=== PATIENT | female | born 1960 | race Caucasian/White ===

== ENCOUNTER → 2017-05-06 | Outpatient (CLI) | payer OTHER ==
--- NOTE | 2017-05-06 11:28 | MM ---
Reason for exam: additional evaluation requested from abnormal screening. Last mammogram was performed 1 month ago. History: Patient is postmenopausal. Physical Findings: Nurse did not find any significant physical abnormalities on exam. MG Work Up Mamm w CAD LT CC and MLO view(s) were taken of the left breast. Prior study comparison: April 20, 2017, bilateral MG screening mammo w CAD. June 12, 2011, bilateral digital screening mammo w/CAD. Developing asymmetry does not persist as distinct lesion on additional views. These results were verbally communicated with the patient and result sheet given to the patient on 05/06/17. ASSESSMENT: Benign, BI-RAD 2 RECOMMENDATION: Return to routine screening mammogram schedule for both breasts.
== END | disposition home or self-care (01) ==
LOC: RADMAMWWP 10:15
PROVIDERS: ATTEND Family Medicine
DX: R92.8 Other abnormal and inconclusive findings on diagnostic imaging of breast (principal)
CPT/HCPCS: 77065

== ENCOUNTER 2017-11-27 10:59 | Emergency (ER) | payer OTHER ==
[2017-11-27 11:08] VITALS: BP 121/81; PULSE 77; RESP 16; TEMP 97.7
[2017-11-27] MEDS ORDERED: LIDOCAINE 1% INJ 10MG/ML (20 ML MDV) SQ STA (13:08)
--- NOTE | 2017-11-27 13:12 | ED ---
General Adult HPI - General Chief complaint: Skin/Abscess/Foreign Body Stated complaint: Wound on chest Time Seen by Provider: 11/27/17 13:05 Source: patient, RN notes reviewed Mode of arrival: ambulatory Limitations: no limitations - History of Present Illness Initial comments: Patient 57-year-old female presents emergency room today with a chief complaint of abscess to the left breast. Patient does admit that there was area to the left breast that she was told a year ago that she did not need to worry about. She states her last few days it has become more swollen and red and tender. Denies any drainage. She denies any other complaints. Patient denies any recent fever, chills, shortness of breath, chest pain, back pain, abdominal pain , tingling, dysuria or hematuria, constipation or diarrhea, headaches or visual changes, or any other complaints. - Related Data Previous Rx's Medication Instructions Recorded Sulfamethox-Tmp 800-160Mg [Bactrim 1 tab PO Q12HR #20 tab 11/27/17 DS 800-160 mg] Allergies Allergy/AdvReac Type Severity Reaction Status Date / Time No Known Allergies Allergy Verified 11/27/17 11:04 Review of Systems ROS Statement: Those systems with pertinent positive or pertinent negative responses have been documented in the HPI. ROS Other: All systems not noted in ROS Statement are negative. Past Medical History Past Medical History: COPD, GERD/Reflux, Hypertension History of Any Multi-Drug Resistant Organisms: None Reported Past Surgical History: Tubal Ligation Additional Past Surgical History / Comment(s): facial Past Psychological History: No Psychological Hx Reported Smoking Status: Current every day smoker Past Alcohol Use History: Occasional Past Drug Use History: None Reported General Exam - General Exam Comments Initial Comments: General: The patient is awake and alert, in no distress, and does not appear acutely ill. Eye: Pupils are equal, round and reactive to light, extra-ocular movements are intact. No nystagmus. There is normal conjunctiva bilaterally. No signs of icterus. Ears, nose, mouth and throat: There are moist mucous membranes and no oral lesions. Neck: The neck is supple, there is no tenderness or JVD. Musculoskeletal: Normal ROM, no tenderness. Strength 5/5. Sensation intact. Pulses equal bilaterally 2+. Neurological: A&O x 3. CN II-XII intact, There are no obvious motor or sensory deficits. Coordination appears grossly intact. Speech is normal. Skin: Patient does have abscess to left breast measuring approximately 1 cm across. Local redness and erythema locally surrounding area. Psychiatric: Cooperative, appropriate mood & affect, normal judgment. Limitations: no limitations Course Vital Signs 11/27/17 11:04 Temperature 97.7 F Pulse Rate 77 Respiratory 16 Rate Blood Pressure 121/81 O2 Sat by Pulse 96 Oximetry Procedures - Procedures Initial comment: Procedure: Incision and drainage The skin overlying the abscess was prepped with Betadine, and anesthetized with 1% lidocaine without epinephrine. A #11 scalpel was then used to incise the abscess. Some purulent material was then extracted from the lesion. Gauze dressing placed on top, The patient tolerated the procedure well. Medical Decision Making - Medical Decision Making Patient did have abscess to the left side of the chest wall. Was drained here in the emergency room will be started on antibiotics and advised follow-up family physician. Disposition Clinical Impression: Abscess Disposition: HOME SELF-CARE Condition: Good Instructions: Abscess (ED) Additional Instructions: Please use warm compresses to the affected area and antibiotic as prescribed. Please follow family physician over the next 2-5 days return here to emergency room if any symptoms increase or worsen. Prescriptions: Sulfamethox-Tmp 800-160Mg [Bactrim DS 800-160 mg] 1 tab PO Q12HR #20 tab Is patient prescribed a controlled substance at d/c from ED?: No Referrals: Gio Gay MD [Primary Care Provider] - 1-2 days Time of Disposition: 13:32
== END 2017-11-27 13:56 | disposition home or self-care (01) ==
LOC: EC 10:59
DX: L02.213 Cutaneous abscess of chest wall (principal); F17.200 Nicotine dependence, unspecified, uncomplicated
CPT/HCPCS: 99282; 10060; J2001

== ENCOUNTER → 2019-01-11 | Outpatient (CLI) | payer OTHER ==
--- NOTE | 2019-01-13 09:46 | MM ---
Reason for exam: screening (asymptomatic). Last mammogram was performed 1 year and 8 months ago. History: Patient is postmenopausal. Physical Findings: A clinical breast exam by your physician is recommended on an annual basis and results should be correlated with mammographic findings. MG Screening Mammo w CAD Bilateral CC and MLO view(s) were taken. Prior study comparison: May 06, 2017, left breast MG work up mamm w CAD LT. April 20, 2017, bilateral MG screening mammo w CAD. The breast tissue is heterogeneously dense. This may lower the sensitivity of mammography. Subareolar nodularity left CC view posterior depth is more defined. ASSESSMENT: Incomplete: need additional imaging evaluation, BI-RAD 0 RECOMMENDATION: Special view mammogram of the left breast. (3D) If lesion persists on supplemental views, image directed ultrasound is recommended. [facility] will attempt to contact patient to return for supplemental views and ultrasound if indicated.
== END | disposition home or self-care (01) ==
LOC: RADMAMWWP 13:28
PROVIDERS: ATTEND Family Medicine
DX: Z12.31 Encounter for screening mammogram for malignant neoplasm of breast (principal)
CPT/HCPCS: 77067

== ENCOUNTER 2019-02-27 10:45 | Emergency (ER) | payer OTHER ==
[2019-02-27 11:06] VITALS: RESP 16; TEMP 98.5
[2019-02-27] MEDS ORDERED: IPRATROPIUM-ALBUTEROL 3 ML NEB INHALATION STA (11:21)
[2019-02-27] MEDS ORDERED: methylPREDNISolone SOD SUCCI 125 MG/2 ML VIAL IV STA (11:21)
[2019-02-27 12:01] LABS: Basophils # (A) 0.1 k/uL (0-0.2); Basophils % (A) 1 %; Eosinophils # (A) 0.1 k/uL (0-0.7); Eosinophils % (A) 1 %; HCT 41.6 % (34.0-46.0); HGB 13.2 gm/dL (11.4-16.0); Lymphocytes # (A) 1.6 k/uL (1.0-4.8); Lymphocytes % (A) 20 %; MCH 28.8 pg (25.0-35.0); MCHC 31.8 g/dL (31.0-37.0); MCV 90.6 fL (80.0-100.0); Mean Platelet Volume 6.6; Monocytes # (A) 0.4 k/uL (0-1.0); Monocytes % (A) 4 %; Neutrophils # (A) 5.8 k/uL (1.3-7.7); Neutrophils % (A) 72 %; Platelet Count 321 k/uL (150-450); RBC 4.59 m/uL (3.80-5.40); RDW 14.2 % (11.5-15.5); WBC 8.1 k/uL (3.8-10.6)
[2019-02-27 12:10] LABS: ALT 15 U/L (9-52); AST 18 U/L (14-36); African American GFR (CKD) >90 (>60 ml/min/1.73 sqM); Alkaline Phosphatase 69 U/L (38-126); Anion Gap 4 mmol/L; Blood Urea Nitrogen 7 mg/dL (7-17); Calcium 9.1 mg/dL (8.4-10.2); Carbon Dioxide 25 mmol/L (22-30); Chloride 111 mmol/L (98-107); Glucose 131 mg/dL (74-99); Potassium 3.9 mmol/L (3.5-5.1); Sodium 140 mmol/L (137-145); Total Bilirubin 0.3 mg/dL (0.2-1.3); Total Protein 5.6 g/dL (6.3-8.2)
--- NOTE | 2019-02-27 12:12 | ED ---
SOB HPI - General Chief Complaint: Shortness of Breath Stated Complaint: pneumonia Time Seen by Provider: 02/27/19 11:04 Source: EMS Mode of arrival: EMS Limitations: no limitations - History of Present Illness Initial Comments: The patient is a 59-year-old female with past history of COPD who presents to the emergency room with reported shortness of breath for the past 3 weeks. She works at the [employer] and believes she may come in contact with someone sick. Admits to a cough without sputum production. She did get a flu shot this year. Admits to shortness of breath and chest wall pain. She feels short of breath at rest and with exertion. She saw her primary care physician, Dr. Gay in office last week. He performed a chest x-ray and diagnosed the patient with pneumonia. He placed her on Keflex. States she's been taking the medications 4 times a day however she feels worse. She does have inhalers at her disposal to use but states she hasn't been using them because the do not help her. 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 She normally smokes a half pack a day. States that since she's been sick she's only smoked 3 cigarettes total. Denies any cardiac history. Ripping or tearing sensation to her back. Denies nausea, vomiting or diaphoresis. No nausea or vomiting. Denies a history of DVT or PE. No lower extremity swelling. Denies any calf pain. She has any abdominal pain or changes in her bowel or bladder habits. She was instructed that she did not feel better, to going to the emergency department. She denies any fevers or chills. There are no other alleviating, precipitating or modifying factors - Related Data Home Medications Medication Instructions Recorded Confirmed HYDROcodone/APAP 7.5-325MG [[place] 1 - 2 tab PO DAILY PRN 02/27/19 02/27/19 7.5-325] Ibuprofen 200 mg PO Q6H PRN 02/27/19 02/27/19 amLODIPine [Norvasc] 5 mg PO DAILY 02/27/19 02/27/19 Previous Rx's Medication Instructions Recorded Azithromycin [Zithromax Z-pack] 250 mg PO DIRECTED #1 pack 02/27/19 guaiFENesin SYRUP 100MG/5ML 10 mg PO Q4HR PRN #180 ml 02/27/19 [Robitussin] predniSONE 20 mg PO BID #10 tab 02/27/19 Allergies Allergy/AdvReac Type Severity Reaction Status Date / Time No Known Allergies Allergy Verified 02/27/19 11:26 Review of Systems ROS Statement: Those systems with pertinent positive or pertinent negative responses have been documented in the HPI. ROS Other: All systems not noted in ROS Statement are negative. Past Medical History Past Medical History: COPD, GERD/Reflux, Hypertension History of Any Multi-Drug Resistant Organisms: None Reported Past Surgical History: Tubal Ligation Additional Past Surgical History / Comment(s): facial Past Psychological History: No Psychological Hx Reported Smoking Status: Current every day smoker Past Alcohol Use History: Occasional Past Drug Use History: None Reported General Exam Limitations: no limitations Course Vital Signs 02/27/19 02/27/19 02/27/19 11:01 11:45 11:51 Temperature 98.5 F Pulse Rate 76 67 68 Respiratory 16 Rate Blood Pressure 123/84 O2 Sat by Pulse 98 Oximetry 02/27/19 14:06 Temperature Pulse Rate 70 Respiratory 16 Rate Blood Pressure 132/71 O2 Sat by Pulse 99 Oximetry Medical Decision Making - Medical Decision Making Upon arrival the patient was placed into room 18. A thorough history and physical exam was performed. The patient arrives and demonstrates no signs of respiratory distress. His recommend laboratory studies and a chest x-ray. The patient is provided with a DuoNeb breathing treatment. CBC and CMP are unremarkable. D-dimer is 0.41 rate influenza a and B are negative. Chest x-ray is performed and demonstrates no acute process. I reevaluated the patient she states that she does have some improvement with the DuoNeb breathing treatment. I did recommend changing the patient to azithromycin. She is to stop taking the Keflex. Also provided patient with a prescription for Naprosyn and prednisone. She was given 125 mg of Solu-Medrol through peripheral IV. She has a follow-up appointment with Dr. Gay on Wednesday. If she has any new or worsening symptoms she should return to the emergency room. The patient was in agreement treatment plan and discharged home in stable condition - Lab Data Result diagrams: 02/27/19 11:46 02/27/19 11:46 Lab Results 02/27/19 02/27/19 02/27/19 Range/Units 11:46 11:46 11:46 WBC 8.1 (3.8-10.6) k/uL RBC 4.59 (3.80-5.40) m/uL Hgb 13.2 (11.4-16.0) gm/dL Hct 41.6 (34.0-46.0) % MCV 90.6 (80.0-100.0) fL MCH 28.8 (25.0-35.0) pg MCHC 31.8 (31.0-37.0) g/dL RDW 14.2 (11.5-15.5) % Plt Count 321 (150-450) k/uL Neutrophils % 72 % Lymphocytes % 20 % Monocytes % 4 % Eosinophils % 1 % Basophils % 1 % Neutrophils # 5.8 (1.3-7.7) k/uL Lymphocytes # 1.6 (1.0-4.8) k/uL Monocytes # 0.4 (0-1.0) k/uL Eosinophils # 0.1 (0-0.7) k/uL Basophils # 0.1 (0-0.2) k/uL PT 9.5 (9.0-12.0) sec INR 0.9 (<1.2) APTT 22.9 (22.0-30.0) sec D-Dimer 0.41 (<0.60) mg/L FEU Sodium 140 (137-145) mmol/L Potassium 3.9 (3.5-5.1) mmol/L Chloride 111 H (98-107) mmol/L Carbon Dioxide 25 (22-30) mmol/L Anion Gap 4 mmol/L BUN 7 (7-17) mg/dL Creatinine 0.53 (0.52-1.04) mg/dL Est GFR (CKD-EPI)AfAm >90 (>60 ml/min/1.73 sqM) Est GFR (CKD-EPI)NonAf >90 (>60 ml/min/1.73 sqM) Glucose 131 H (74-99) mg/dL Calcium 9.1 (8.4-10.2) mg/dL Total Bilirubin 0.3 (0.2-1.3) mg/dL AST 18 (14-36) U/L ALT 15 (9-52) U/L Alkaline Phosphatase 69 (38-126) U/L Troponin I (0.000-0.034) ng/mL NT-Pro-B Natriuret Pep pg/mL Total Protein 5.6 L (6.3-8.2) g/dL Albumin 3.0 L (3.5-5.0) g/dL Influenza Type A RNA (Not Detectd) Influenza Type B (PCR) (Not Detectd) 02/27/19 02/27/19 02/27/19 Range/Units 11:46 11:46 11:46 WBC (3.8-10.6) k/uL RBC (3.80-5.40) m/uL Hgb (11.4-16.0) gm/dL Hct (34.0-46.0) % MCV (80.0-100.0) fL MCH (25.0-35.0) pg MCHC (31.0-37.0) g/dL RDW (11.5-15.5) % Plt Count (150-450) k/uL Neutrophils % % Lymphocytes % % Monocytes % % Eosinophils % % Basophils % % Neutrophils # (1.3-7.7) k/uL Lymphocytes # (1.0-4.8) k/uL Monocytes # (0-1.0) k/uL Eosinophils # (0-0.7) k/uL Basophils # (0-0.2) k/uL PT (9.0-12.0) sec INR (<1.2) APTT (22.0-30.0) sec D-Dimer (<0.60) mg/L FEU Sodium (137-145) mmol/L Potassium (3.5-5.1) mmol/L Chloride (98-107) mmol/L Carbon Dioxide (22-30) mmol/L Anion Gap mmol/L BUN (7-17) mg/dL Creatinine (0.52-1.04) mg/dL Est GFR (CKD-EPI)AfAm (>60 ml/min/1.73 sqM) Est GFR (CKD-EPI)NonAf (>60 ml/min/1.73 sqM) Glucose (74-99) mg/dL Calcium (8.4-10.2) mg/dL Total Bilirubin (0.2-1.3) mg/dL AST (14-36) U/L ALT (9-52) U/L Alkaline Phosphatase (38-126) U/L Troponin I <0.012 (0.000-0.034) ng/mL NT-Pro-B Natriuret Pep 105 pg/mL Total Protein (6.3-8.2) g/dL Albumin (3.5-5.0) g/dL Influenza Type A RNA Not Detected (Not Detectd) Influenza Type B (PCR) Not Detected (Not Detectd) - EKG Data EKG Comments: EKG demonstrates a normal sinus rhythm with a ventricular rate of 60. ND interval 122. QRS 76. QTC 442. No acute ST segment elevations or depressions concerning for ischemic changes Disposition Clinical Impression: Cough Disposition: HOME SELF-CARE Condition: Stable Instructions (If sedation given, give patient instructions): Bronchospasm (ED) Additional Instructions: Please follow up with primary care doctor in 2-4 days. Return to the emergency room for any new or worsening symptoms. Use your inhaler every 4 hours Prescriptions: predniSONE 20 mg PO BID #10 tab guaiFENesin SYRUP 100MG/5ML [Robitussin] 10 mg PO Q4HR PRN #180 ml PRN Reason: Cough Azithromycin [Zithromax Z-pack] 250 mg PO DIRECTED #1 pack Is patient prescribed a controlled substance at d/c from ED?: No Referrals: Gio Gay MD [Primary Care Provider] - 1-2 days Time of Disposition: 13:55
[2019-02-27 12:24] LABS: D-Dimer 0.41 mg/L FEU (<0.60); INR 0.9 (<1.2); Partial Thromboplastin Time 22.9 sec (22.0-30.0); Prothrombin Time 9.5 sec (9.0-12.0)
--- NOTE | 2019-02-27 12:37 | XR ---
EXAMINATION TYPE: XR chest 2V DATE OF EXAM: 02/27/2019 COMPARISON: NONE TECHNIQUE: PA and lateral views submitted. HISTORY: Cough and congestion FINDINGS: The lungs are clear and there is no pneumothorax, pleural effusion, or focal pneumonia. Chronic rib deformities suggest remote trauma. Mild diffuse osteopenia. Deformity of the left clavicle noted. Hy perinflation suggests mild COPD. IMPRESSION: 1. No acute process.
[2019-02-27 14:07] VITALS: BP 132/71; PULSE 70
== END 2019-02-27 14:06 | disposition home or self-care (01) ==
LOC: EC 10:45
DX: R05 Cough (principal); R06.02 Shortness of breath; R07.89 Other chest pain; I10 Essential (primary) hypertension; F17.200 Nicotine dependence, unspecified, uncomplicated; Z79.899 Other long term (current) drug therapy
CPT/HCPCS: 36415; 94640; 93005; 85379; 83880; 80053; 84484; 85025; 85610; 85730; 87502; 71046; 99285; 96374; J2930

== ENCOUNTER 2020-12-06 10:59 | Emergency (ER) | payer OTHER ==
[2020-12-06 11:06] VITALS: BP 106/69; PULSE 65; RESP 18; TEMP 98.3
[2020-12-06] MEDS ORDERED: KETOROLAC 15 MG/ML 1 ML VIAL IM STA (11:20)
--- NOTE | 2020-12-06 11:22 | ED ---
General Adult HPI - General Chief complaint: Extremity Injury, Upper Stated complaint: Finger pain Source: patient, RN notes reviewed, old records reviewed Mode of arrival: ambulatory Limitations: no limitations - History of Present Illness Initial comments: 60-year-old white female, alert and oriented 4 and in no acute distress, presents to the emergency room with an ingrown fingernail on her right index finger for 2 years. Patient states that he has been increasingly sore and has seen Dr. Gay for the same and was directed to follow up with a doctor in [place] however she didn't have a ride to make that appointment and she has not followed up since. Patient denies any other problems. She denies any fevers or signs of infection. Patient is a smoker. -: year(s) (2) Location: right (Index finger) Severity scale (1-10): 10 Quality: sharp Consistency: constant Improves with: none Worsens with: other (Palpation) Associated Symptoms: denies other symptoms Treatments Prior to Arrival: none - Related Data Home Medications Medication Instructions Recorded Confirmed HYDROcodone/APAP 7.5-325MG [[place] 1 - 2 tab PO DAILY PRN 02/27/19 02/27/19 7.5-325] Ibuprofen 200 mg PO Q6H PRN 02/27/19 02/27/19 amLODIPine [Norvasc] 5 mg PO DAILY 02/27/19 02/27/19 Previous Rx's Medication Instructions Recorded Azithromycin [Zithromax Z-pack (6 250 mg PO DIRECTED #1 pack 02/27/19 tabs)] guaiFENesin SYRUP 100MG/5ML 10 mg PO Q4HR PRN #180 ml 02/27/19 [Robitussin] predniSONE [Deltasone] 20 mg PO BID #10 tab 02/27/19 Allergies Allergy/AdvReac Type Severity Reaction Status Date / Time No Known Allergies Allergy Verified 12/06/20 11:06 Review of Systems ROS Statement: Those systems with pertinent positive or pertinent negative responses have been documented in the HPI. ROS Other: All systems not noted in ROS Statement are negative. Past Medical History Past Medical History: COPD, GERD/Reflux, Hypertension History of Any Multi-Drug Resistant Organisms: None Reported Past Surgical History: Tubal Ligation Additional Past Surgical History / Comment(s): facial Past Psychological History: No Psychological Hx Reported Smoking Status: Current every day smoker Past Alcohol Use History: Occasional Past Drug Use History: None Reported General Exam Limitations: no limitations General appearance: alert, in no apparent distress Head exam: Present: atraumatic, normocephalic, normal inspection Eye exam: Present: normal appearance, PERRL, EOMI. Absent: scleral icterus, conjunctival injection, periorbital swelling ENT exam: Present: normal exam, normal oropharynx, mucous membranes moist Neck exam: Present: normal inspection, full ROM. Absent: tenderness, meningismus, lymphadenopathy Respiratory exam: Present: normal lung sounds bilaterally. Absent: respiratory distress, wheezes, rales, rhonchi, stridor Cardiovascular Exam: Present: regular rate, normal rhythm, normal heart sounds. Absent: systolic murmur, diastolic murmur, rubs, gallop, clicks GI/Abdominal exam: Present: soft, normal bowel sounds. Absent: distended, tenderness, guarding, rebound, rigid Right Hand Wrist exam: Present: other (Right index finger ingrown nail) Vascular: Present: normal capillary refill, radial pulse. Absent: vascular compromise Back exam: Present: full ROM. Absent: tenderness Neurological exam: Present: alert, oriented X3, CN II-XII intact Psychiatric exam: Present: normal affect, normal mood Skin exam: Present: warm, dry, intact, normal color. Absent: rash Course Vital Signs 12/06/20 11:02 Temperature 98.3 F Pulse Rate 65 Respiratory 18 Rate Blood Pressure 106/69 O2 Sat by Pulse 98 Oximetry Medical Decision Making - Medical Decision Making Patient has been seen by her primary care doctor for this chronic ingrown nail. There is no signs of infection, drainage or redness. This is been ongoing for 2 years she will be referred to dermatology and her primary care doctor for continuation of care. Case discussed with Dr. Gonzalez. Disposition Clinical Impression: Ingrown nail of index finger Disposition: HOME SELF-CARE Condition: Good Instructions (If sedation given, give patient instructions): Ingrown Nail (ED) Additional Instructions: Follow-up with dermatology as directed for continuation of care. Return if any fevers or signs of infection including drainage or redness. Is patient prescribed a controlled substance at d/c from ED?: No Referrals: Gio Gay MD [Primary Care Provider] - 1-2 days Clark Burden MD [STAFF PHYSICIAN] - 1-2 days Time of Disposition: 11:29
[2020-12-06] MEDS ORDERED: ACET/COD 300 MG/30 MG STARTER PACK 6 TAB BTL PO STA (11:30)
== END 2020-12-06 12:41 | disposition home or self-care (01) ==
LOC: EC 10:59
DX: L60.0 Ingrowing nail (principal); I10 Essential (primary) hypertension; J44.9 Chronic obstructive pulmonary disease, unspecified; K21.9 Gastro-esophageal reflux disease without esophagitis; F17.200 Nicotine dependence, unspecified, uncomplicated; Z79.52 Long term (current) use of systemic steroids; Z79.899 Other long term (current) drug therapy; Z79.1 Long term (current) use of non-steroidal anti-inflammatories (NSAID)
CPT/HCPCS: 96372; 99283; J1885

== ENCOUNTER → 2021-10-21 | Outpatient (CLI) | payer OTHER | END | disposition home or self-care (01) | LOC: RADMAMWWP 11:15 | PROVIDERS: ATTEND Family Medicine | DX: Z53.9 Procedure and treatment not carried out, unspecified reason (principal) ==

== ENCOUNTER → 2021-11-04 | Outpatient (CLI) | payer OTHER ==
--- NOTE | 2021-11-05 10:25 | MM ---
Reason for Exam: Screening (asymptomatic). Last mammogram was performed 2 year(s) and 10 month(s) ago. Patient History: Menarche at age 12. First Full-Term at age 16. Postmenopausal. Risk Values: [place] 5 year model risk: 1.0%. NCI Lifetime model risk: 4.4%. Prior Study Comparison: 04/20/2017 Bilateral Screening Mammogram, [facility]. 05/06/2017 Left Diagnostic Mammogram, [facility]. 01/11/2019 Bilateral Screening Mammogram, [facility]. Tissue Density: The breast tissue is heterogeneously dense. This may lower the sensitivity of mammography. Findings: Analyzed By CAD. There are 2 adjacent benign-appearing dystrophic calcifications right breast and skin lesion in the left breast redemonstrated. There is no suspicious group of microcalcifications or new suspicious mass in either breast. Overall Assessment: Benign, BI-RAD 2 Management: Screening Mammogram of both breasts in 1 year. A clinical breast exam by your physician is recommended on an annual basis and results should be correlated with mammographic findings. Electronically signed and approved by: Kong Mclcelland M.D.
== END | disposition home or self-care (01) ==
LOC: RADMAMWWP 09:43
PROVIDERS: ATTEND Family Medicine
DX: Z12.31 Encounter for screening mammogram for malignant neoplasm of breast (principal); Z78.0 Asymptomatic menopausal state
CPT/HCPCS: 77067

== ENCOUNTER 2022-11-08 09:10 | Emergency (ER) | payer OTHER ==
[2022-11-08] MEDS ORDERED: KETOROLAC 15 MG/ML 1 ML VIAL IVP STA (09:11)
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
[2022-11-08 09:30] VITALS: BP 101/67; PULSE 90; RESP 15; TEMP 99.1
[2022-11-08 09:42] LABS: ALT 12 U/L (4-34); AST 14 U/L (14-36); African American GFR (CKD) >90 (>60 ml/min/1.73 sqM); Albumin 3.2 g/dL (3.5-5.0); Alkaline Phosphatase 72 U/L (38-126); Anion Gap 6 mmol/L; Blood Urea Nitrogen 11 mg/dL (7-17); Calcium 8.6 mg/dL (8.4-10.2); Carbon Dioxide 25 mmol/L (22-30); Chloride 107 mmol/L (98-107); Glucose 121 mg/dL (74-99); Non-African American GFR(CKD) >90 (>60 ml/min/1.73 sqM); Potassium 3.5 mmol/L (3.5-5.1); Sodium 138 mmol/L (137-145); Total Protein 5.7 g/dL (6.3-8.2)
[2022-11-08 09:43] LABS: Basophils % (A) 0 %; Eosinophils # (A) 0.1 k/uL (0-0.7); Eosinophils % (A) 1 %; HCT 39.4 % (34.0-46.0); HGB 12.8 gm/dL (11.4-16.0); Hypochromasia Slight; Lymphocytes # (A) 0.5 k/uL (1.0-4.8); Lymphocytes % (A) 5 %; MCH 29.9 pg (25.0-35.0); MCHC 32.5 g/dL (31.0-37.0); MCV 92.1 fL (80.0-100.0); Monocytes # (A) 0.2 k/uL (0-1.0); Monocytes % (A) 2 %; Neutrophils # (A) 9.1 k/uL (1.3-7.7); Neutrophils % (A) 92 %; Platelet Count 188 k/uL (150-450); RBC 4.28 m/uL (3.80-5.40); RDW 14.1 % (11.5-15.5); WBC 9.9 k/uL (3.8-10.6)
--- NOTE | 2022-11-08 09:48 | XR ---
EXAMINATION TYPE: XR PA chest with right rib series, 5 views DATE OF EXAM: 11/08/2022 COMPARISON: Chest 02/27/2019 HISTORY: 62-year-old female right flank pain after fall, trauma FINDINGS: Heart normal size. Aorta and pulmonary vasculature are within normal limits. Hyperinflation. No conso lidation, pneumothorax, or pleural effusion is seen. Old healed bilateral rib fracture deformities. Nodule at the periphery of the left base, suspect nipple shadow. Recommend follow-up in 4-6 weeks uti lizing a nipple marker. Old fractures on the right involving fourth, fifth, sixth posterolateral ribs and 8 and 9 lateral rib s. No acute displaced right rib fractures seen. IMPRESSION: 1. COPD without acute process seen. Nodule at the left base likely represents nipple shadow. Recommen d follow-up radiograph in 4-6 weeks utilizing a nipple marker. 2. Multiple old, healed bilateral rib fracture deformities. On the right, involving the fourth, fifth , sixth, eighth, and ninth ribs. 3. No acute displaced right rib fracture is identified.
[2022-11-08 09:59] LABS: Appearance,Urine Cloudy (Clear); Bacteria,Urine Occasional /hpf; Bilirubin,Urine Negative (Negative); Blood,Urine Moderate (Negative); Color,Urine Yellow; Glucose,Urine (UA) Negative (Negative); Ketones,Urine Negative (Negative); Leukocyte Esterase,Urine Large (Negative); Mucus,Urine Rare /hpf; Nitrite,Urine Positive (Negative); Protein,Urine 1+ (Negative); RBC,Urine 11 /hpf (0-5); Specific Gravity,Urine 1.012 (1.001-1.035); Squamous Epithelial Cell,Urine <1 /hpf (0-4); Urobilinogen,Urine <2.0 mg/dL (<2.0); WBC,Urine >182 /hpf (0-5)
[2022-11-08 10:10] LABS: Amphetamine Screen,Urine Not Detected (NotDetected); Barbiturate Screen,Urine Not Detected (NotDetected); Benzodiazepines Screen,Urine Not Detected (NotDetected); Cocaine Screen,Urine Detected (NotDetected); Methadone Screen, Urine Not Detected (NotDetected); Opiate Screen,Urine Not Detected (NotDetected); Oxycodone Screen, Urine Not Detected (NotDetected); Phencyclidine Screen,Urine Not Detected (NotDetected); Tricyclic Antidepressant,Urine Not Detected (NotDetected); Urn Cannabinoid Scrn Not Detected (NotDetected)
[2022-11-08] MEDS ORDERED: cefTRIAXone IN SWFI 1,000 MG/10 ML SYRINGE IVP STA (11:16)
== END 2022-11-08 12:17 | disposition home or self-care (01) ==
LOC: EC 09:10
DX: F14.10 Cocaine abuse, uncomplicated (principal); N39.0 Urinary tract infection, site not specified; R07.81 Pleurodynia; I10 Essential (primary) hypertension; J44.9 Chronic obstructive pulmonary disease, unspecified; F17.200 Nicotine dependence, unspecified, uncomplicated; Z79.899 Other long term (current) drug therapy
CPT/HCPCS: 36415; 80053; 85025; 81001; 80306; 71101; 99284; 96374; 96375; J0696; J1885

== ENCOUNTER 2023-05-21 02:17 | Inpatient (IN) | payer MEDICARE, OTHER ==
[2023-05-21] MEDS ORDERED: ONDANSETRON 4 MG/2 ML VIAL IVP STA (03:14)
[2023-05-21] MEDS ORDERED: diphenhydrAMINE 50 MG/ML 1 ML VIAL IVP STA (03:15)
[2023-05-21] MEDS ORDERED: methylPREDNISolone SOD SUCCI 125 MG/2 ML VIAL IV STA (03:15)
[2023-05-21] MEDS ORDERED: KETOROLAC 15 MG/ML 1 ML VIAL IVP STA (03:16)
[2023-05-21] MEDS ORDERED: SODIUM CHLORIDE 0.9% 1,000 ML IV ONE (03:16)
[2023-05-21] MEDS: SODIUM CHLORIDE 0.9% 2,000 ML IV ONE ×2 (03:24→04:39)
--- NOTE | 2023-05-21 03:52 | ED ---
Dizziness HPI - General Stated Complaint: Hives Time Seen by Provider: 05/21/23 02:20 - History of Present Illness Initial Comments: 63-year-old female with past medical history of COPD who presents emergency department with multiple complaints. Patient states that she has been weak with pruritic skin. States she has had a very poor appetite with little to no oral intake. She has reported to weight loss, general malaise. Has had a decrease in the amount of bowel movements and urination. She denies chest pain or shortness of breath. Has generalized abdominal pain. Denies black or bloody stools. Denies any exposure to new allergens. EMS was called and found the patient to have significant hypotension. No other alleviating, precipitating or modifying factors - Related Data Home Medications Medication Instructions Recorded Confirmed No Known Home Medications 05/21/23 05/21/23 Allergies Allergy/AdvReac Type Severity Reaction Status Date / Time No Known Allergies Allergy Verified 05/21/23 07:54 Review of Systems ROS Statement: Those systems with pertinent positive or pertinent negative responses have been documented in the HPI. ROS Other: All systems not noted in ROS Statement are negative. Past Medical History Past Medical History: COPD, GERD/Reflux, Hypertension History of Any Multi-Drug Resistant Organisms: None Reported Past Surgical History: Tubal Ligation Additional Past Surgical History / Comment(s): facial Past Psychological History: No Psychological Hx Reported Smoking Status: Current every day smoker Past Alcohol Use History: Occasional Past Drug Use History: None Reported - Past Family History Sister(s) Family Medical History: Cancer Additional Family Medical History / Comment(s): throat cancer General Exam Limitations: altered mental status General appearance: alert, cachectic Head exam: Present: atraumatic, normocephalic, normal inspection Eye exam: Present: normal appearance, PERRL, EOMI. Absent: scleral icterus, conjunctival injection, periorbital swelling ENT exam: Present: mucous membranes dry Respiratory exam: Present: normal lung sounds bilaterally. Absent: respiratory distress, wheezes, rales, rhonchi, stridor Cardiovascular Exam: Present: regular rate, normal rhythm, normal heart sounds. Absent: systolic murmur, diastolic murmur, rubs, gallop, clicks GI/Abdominal exam: Present: soft, normal bowel sounds. Absent: distended, tenderness, guarding, rebound, rigid Neurological exam: Present: alert, oriented X3, CN II-XII intact Psychiatric exam: Present: anxious Course Vital Signs 05/21/23 05/21/23 05/21/23 02:18 04:03 06:20 Temperature 98.8 F 98.7 F 98.2 F Pulse Rate 82 82 86 Respiratory 18 18 18 Rate Blood Pressure 78/57 78/57 78/54 O2 Sat by Pulse 97 97 93 L Oximetry 05/21/23 05/21/23 07:48 14:03 Temperature 98.1 F 97.3 F L Pulse Rate 85 85 Respiratory 20 20 Rate Blood Pressure 95/58 97/58 O2 Sat by Pulse 95 95 Oximetry Medical Decision Making - Medical Decision Making Was pt. sent in by a medical professional or institution (, PA, BLOW TORCH OPERATOR, urgent care, hospital, or long term...) When possible be specific @ -No Did you speak to anyone other than the patient for history (EMS, parent, family, police, friend...)? What history was obtained from this source @ -I spoke with EMS for history Did you review nursing and triage notes (agree or disagree)? Why? @ -I reviewed and agree with nursing and triage notes Were old charts reviewed (outside hosp., previous admission, EMS record, old EKG, old radiological studies, urgent care reports/EKG's, long term records)? Report findings @ -No old charts were reviewed Differential Diagnosis (chest pain, altered mental status, abdominal pain women, abdominal pain men, vaginal bleeding, weakness, fever, dyspnea, syncope, headache, dizziness, GI bleed, back pain, seizure, CVA, palpatations, mental health, musculoskeletal)? @ -Differential Weakness: Hypoglycemia, shock, sepsis, hyponatremia, anemia, infection, UT, ETOH, adverse medicine reaction, overdose, stroke, this is not meant to be an all-inclusive list. EKG interpreted by me (3pts min.). @ -Yes and demonstrates sinus rhythm with rate of 82. WA interval 131. QRS 90. QTc of 457. No acute ST segment elevations or depressions X-rays interpreted by me (1pt min.). @ -Yes and demonstrates no acute process CT interpreted by me (1pt min.). @ -Yes and demonstrates possible gastritis U/S interpreted by me (1pt. min.). @ -None done What testing was considered but not performed or refused? (CT, X-rays, U/S, labs)? Why? @ -None What meds were considered but not given or refused? Why? @ -None Did you discuss the management of the patient with other professionals (professionals i.e. , PA, BLOW TORCH OPERATOR, lab, RT, psych nurse, high school social studies tutor, auto mechanic apprentice, teacher, public service officer, onsite case manager)? Give summary @ -Spoke with Dr. Gay for admission Was smoking cessation discussed for >3mins.? @ -No Was critical care preformed (if so, how long)? @ -No Were there social determinants of health that impacted care today? How? (Homelessness, low income, unemployed, alcoholism, drug addiction, transportation, low edu. Level, literacy, decrease access to med. care, fci, rehab)? @ -No Was there de-escalation of care discussed even if they declined (Discuss DNR or withdrawal of care, Hospice)? DNR status @ -No What co-morbidities impacted this encounter? (DM, HTN, Smoking, COPD, CAD, Cancer, CVA, ARF, Chemo, Hep., AIDS, mental health diagnosis, sleep apnea, morbid obesity)? @ -COPD Was patient admitted / discharged? Hospital course, mention meds given and route, prescriptions, significant lab abnormalities, going to OR and other pertinent info. @ -Upon arrival patient was placed into room 16. Thorough history and physical exam was performed. IV was established. Patient is bolused normal saline for her hypotension. Laboratory studies are conducted. Patient does have markedly elevated creatinine. Jones catheter is placed. Patient begins to make urine. I did recommend admission. Patient originally was adamant that she was going to go home even if it was AGAINST MEDICAL ADVICE. We are able to convince the patient to stay. Spoke with Dr. Gay who agreed to admit her with nephrology on consult Undiagnosed new problem with uncertain prognosis? @ -yes Drug Therapy requiring intensive monitoring for toxicity (Heparin, Nitro, Insulin, Cardizem)? @ -No Were any procedures done? @ -No Diagnosis/symptom? @ -Acute weakness, acute hypotension, acute kidney injury, polysubstance abuse Acute, or Chronic, or Acute on Chronic? @ -Acute Uncomplicated (without systemic symptoms) or Complicated (systemic symptoms)? @ -Complicated Side effects of treatment? @ -No Exacerbation, Progression, or Severe Exacerbation? @ -No Poses a threat to life or bodily function? How? (Chest pain, USA, UT, pneumonia, PE, COPD, DKA, ARF, appy, cholecystitis, CVA, Diverticulitis, Homicidal, Suic idal, threat to staff... and all critical care pts) @ -Yes patient is in kidney failure - Lab Data Result diagrams: 05/21/23 04:30 05/21/23 04:30 Lab Results 05/21/23 05/21/23 05/21/23 Range/Units 04:30 04:30 04:30 WBC 10.3 (3.8-10.6) k/uL RBC 4.49 (3.80-5.40) m/uL Hgb 13.3 (11.4-16.0) gm/dL Hct 40.5 (34.0-46.0) % MCV 90.2 (80.0-100.0) fL MCH 29.6 (25.0-35.0) pg MCHC 32.8 (31.0-37.0) g/dL RDW 14.0 (11.5-15.5) % Plt Count 258 (150-450) k/uL MPV 9.2 Neutrophils % 72 % Lymphocytes % 21 % Monocytes % 5 % Eosinophils % 1 % Basophils % 0 % Neutrophils # 7.4 (1.3-7.7) k/uL Lymphocytes # 2.2 (1.0-4.8) k/uL Monocytes # 0.5 (0-1.0) k/uL Eosinophils # 0.1 (0-0.7) k/uL Basophils # 0.0 (0-0.2) k/uL PT 10.7 (10.0-12.5) sec INR 1.0 (<1.2) APTT 23.6 (22.0-30.0) sec Sodium 137 (137-145) mmol/L Potassium 4.1 (3.5-5.1) mmol/L Chloride 109 H (98-107) mmol/L Carbon Dioxide 18 L (22-30) mmol/L Anion Gap 10 mmol/L BUN 51 H (7-17) mg/dL Creatinine 3.59 H (0.52-1.04) mg/dL Est GFR (CKD-EPI)AfAm 15 (>60 ml/min/1.73 sqM) Est GFR (CKD-EPI)NonAf 13 (>60 ml/min/1.73 sqM) Glucose 78 (74-99) mg/dL Plasma Lactic Acid Stevan (0.7-2.0) mmol/L Calcium 9.4 (8.4-10.2) mg/dL Magnesium 1.9 (1.6-2.3) mg/dL Total Bilirubin 0.7 (0.2-1.3) mg/dL AST 21 (14-36) U/L ALT 13 (4-34) U/L Alkaline Phosphatase 80 (38-126) U/L Troponin I (0.000-0.034) ng/mL Total Protein 6.7 (6.3-8.2) g/dL Albumin 4.0 (3.5-5.0) g/dL Urine Color Urine Appearance (Clear) Urine pH (5.0-8.0) Ur Specific [place] (1.001-1.035) Urine Protein (Negative) Urine Glucose (UA) (Negative) Urine Ketones (Negative) Urine Blood (Negative) Urine Nitrite (Negative) Urine Bilirubin (Negative) Urine Urobilinogen (<2.0) mg/dL Ur Leukocyte Esterase (Negative) Urine RBC (0-5) /hpf Urine WBC (0-5) /hpf Ur Squamous Epith Cells (0-4) /hpf Calcium Oxalate Crystal (None) /hpf Amorphous Sediment (None) /hpf Urine Bacteria (None) /hpf Hyaline Casts (0-2) /lpf Urine Mucus (None) /hpf Urine Opiates Screen (NotDetected) Ur Oxycodone Screen (NotDetected) Urine Methadone Screen (NotDetected) Ur Barbiturates Screen (NotDetected) U Tricyclic Antidepress (NotDetected) Ur Phencyclidine Scrn (NotDetected) Ur Amphetamines Screen (NotDetected) U Methamphetamines Scrn (NotDetected) U Benzodiazepines Scrn (NotDetected) Urine Cocaine Screen (NotDetected) U Marijuana (THC) Screen (NotDetected) Serum Alcohol <10 mg/dL Influenza Type A (PCR) (Not Detectd) Influenza Type B (PCR) (Not Detectd) RSV (PCR) (Not Detectd) SARS-CoV-2 (PCR) (Not Detectd) 05/21/23 05/21/23 05/21/23 Range/Units 04:30 04:30 04:30 WBC (3.8-10.6) k/uL RBC (3.80-5.40) m/uL Hgb (11.4-16.0) gm/dL Hct (34.0-46.0) % MCV (80.0-100.0) fL MCH (25.0-35.0) pg MCHC (31.0-37.0) g/dL RDW (11.5-15.5) % Plt Count (150-450) k/uL MPV Neutrophils % % Lymphocytes % % Monocytes % % Eosinophils % % Basophils % % Neutrophils # (1.3-7.7) k/uL Lymphocytes # (1.0-4.8) k/uL Monocytes # (0-1.0) k/uL Eosinophils # (0-0.7) k/uL Basophils # (0-0.2) k/uL PT (10.0-12.5) sec INR (<1.2) APTT (22.0-30.0) sec Sodium (137-145) mmol/L Potassium (3.5-5.1) mmol/L Chloride (98-107) mmol/L Carbon Dioxide (22-30) mmol/L Anion Gap mmol/L BUN (7-17) mg/dL Creatinine (0.52-1.04) mg/dL Est GFR (CKD-EPI)AfAm (>60 ml/min/1.73 sqM) Est GFR (CKD-EPI)NonAf (>60 ml/min/1.73 sqM) Glucose (74-99) mg/dL Plasma Lactic Acid Stevan 0.9 (0.7-2.0) mmol/L Calcium (8.4-10.2) mg/dL Magnesium (1.6-2.3) mg/dL Total Bilirubin (0.2-1.3) mg/dL AST (14-36) U/L ALT (4-34) U/L Alkaline Phosphatase (38-126) U/L Troponin I <0.012 (0.000-0.034) ng/mL Total Protein (6.3-8.2) g/dL Albumin (3.5-5.0) g/dL Urine Color Urine Appearance (Clear) Urine pH (5.0-8.0) Ur Specific [place] (1.001-1.035) Urine Protein (Negative) Urine Glucose (UA) (Negative) Urine Ketones (Negative) Urine Blood (Negative) Urine Nitrite (Negative) Urine Bilirubin (Negative) Urine Urobilinogen (<2.0) mg/dL Ur Leukocyte Esterase (Negative) Urine RBC (0-5) /hpf Urine WBC (0-5) /hpf Ur Squamous Epith Cells (0-4) /hpf Calcium Oxalate Crystal (None) /hpf Amorphous Sediment (None) /hpf Urine Bacteria (None) /hpf Hyaline Casts (0-2) /lpf Urine Mucus (None) /hpf Urine Opiates Screen (NotDetected) Ur Oxycodone Screen (NotDetected) Urine Methadone Screen (NotDetected) Ur Barbiturates Screen (NotDetected) U Tricyclic Antidepress (NotDetected) Ur Phencyclidine Scrn (NotDetected) Ur Amphetamines Screen (NotDetected) U Methamphetamines Scrn (NotDetected) U Benzodiazepines Scrn (NotDetected) Urine Cocaine Screen (NotDetected) U Marijuana (THC) Screen (NotDetected) Serum Alcohol mg/dL Influenza Type A (PCR) Not Detected (Not Detectd) Influenza Type B (PCR) Not Detected (Not Detectd) RSV (PCR) Not Detected (Not Detectd) SARS-CoV-2 (PCR) Not Detected (Not Detectd) 05/21/23 05/21/23 Range/Units 05:55 05:55 WBC (3.8-10.6) k/uL RBC (3.80-5.40) m/uL Hgb (11.4-16.0) gm/dL Hct (34.0-46.0) % MCV (80.0-100.0) fL MCH (25.0-35.0) pg MCHC (31.0-37.0) g/dL RDW (11.5-15.5) % Plt Count (150-450) k/uL MPV Neutrophils % % Lymphocytes % % Monocytes % % Eosinophils % % Basophils % % Neutrophils # (1.3-7.7) k/uL Lymphocytes # (1.0-4.8) k/uL Monocytes # (0-1.0) k/uL Eosinophils # (0-0.7) k/uL Basophils # (0-0.2) k/uL PT (10.0-12.5) sec INR (<1.2) APTT (22.0-30.0) sec Sodium (137-145) mmol/L Potassium (3.5-5.1) mmol/L Chloride (98-107) mmol/L Carbon Dioxide (22-30) mmol/L Anion Gap mmol/L BUN (7-17) mg/dL Creatinine (0.52-1.04) mg/dL Est GFR (CKD-EPI)AfAm (>60 ml/min/1.73 sqM) Est GFR (CKD-EPI)NonAf (>60 ml/min/1.73 sqM) Glucose (74-99) mg/dL Plasma Lactic Acid Stevan (0.7-2.0) mmol/L Calcium (8.4-10.2) mg/dL Magnesium (1.6-2.3) mg/dL Total Bilirubin (0.2-1.3) mg/dL AST (14-36) U/L ALT (4-34) U/L Alkaline Phosphatase (38-126) U/L Troponin I (0.000-0.034) ng/mL Total Protein (6.3-8.2) g/dL Albumin (3.5-5.0) g/dL Urine Color Yellow Urine Appearance Cloudy H (Clear) Urine pH 5.0 (5.0-8.0) Ur Specific [place] 1.022 (1.001-1.035) Urine Protein 1+ H (Negative) Urine Glucose (UA) Negative (Negative) Urine Ketones Trace H (Negative) Urine Blood Trace H (Negative) Urine Nitrite Negative (Negative) Urine Bilirubin Negative (Negative) Urine Urobilinogen 2.0 (<2.0) mg/dL Ur Leukocyte Esterase Negative (Negative) Urine RBC 4 (0-5) /hpf Urine WBC 4 (0-5) /hpf Ur Squamous Epith Cells 2 (0-4) /hpf Calcium Oxalate Crystal Occasional H (None) /hpf Amorphous Sediment Occasional H (None) /hpf Urine Bacteria Rare H (None) /hpf Hyaline Casts 704 H (0-2) /lpf Urine Mucus Moderate H (None) /hpf Urine Opiates Screen Not Detected (NotDetected) Ur Oxycodone Screen Not Detected (NotDetected) Urine Methadone Screen Not Detected (NotDetected) Ur Barbiturates Screen Not Detected (NotDetected) U Tricyclic Antidepress Not Detected (NotDetected) Ur Phencyclidine Scrn Not Detected (NotDetected) Ur Amphetamines Screen Detected H (NotDetected) U Methamphetamines Scrn Detected H (NotDetected) U Benzodiazepines Scrn Not Detected (NotDetected) Urine Cocaine Screen Detected H (NotDetected) U Marijuana (THC) Screen Not Detected (NotDetected) Serum Alcohol mg/dL Influenza Type A (PCR) (Not Detectd) Influenza Type B (PCR) (Not Detectd) RSV (PCR) (Not Detectd) SARS-CoV-2 (PCR) (Not Detectd) Disposition Clinical Impression: NERISSA (acute kidney injury), Hypotension, Methamphetamine use, Cocaine use Disposition: ADMITTED IP TO THIS [facility] Condition: Serious Is patient prescribed a controlled substance at d/c from ED?: No Time of Disposition: 07:05 Decision to Admit Reason: Admit from EC Decision Date: 05/21/23 Decision Time: 07:33
[2023-05-21 04:51] LABS: Basophils % (A) 0 %; Eosinophils # (A) 0.1 k/uL (0-0.7); Eosinophils % (A) 1 %; HCT 40.5 % (34.0-46.0); HGB 13.3 gm/dL (11.4-16.0); Lymphocytes # (A) 2.2 k/uL (1.0-4.8); Lymphocytes % (A) 21 %; MCH 29.6 pg (25.0-35.0); MCHC 32.8 g/dL (31.0-37.0); MCV 90.2 fL (80.0-100.0); Mean Platelet Volume 9.2; Monocytes # (A) 0.5 k/uL (0-1.0); Monocytes % (A) 5 %; Neutrophils # (A) 7.4 k/uL (1.3-7.7); Neutrophils % (A) 72 %; Platelet Count 258 k/uL (150-450); RBC 4.49 m/uL (3.80-5.40); WBC 10.3 k/uL (3.8-10.6)
[2023-05-21 05:00] LABS: Partial Thromboplastin Time 23.6 sec (22.0-30.0); Prothrombin Time 10.7 sec (10.0-12.5)
[2023-05-21 05:05] LABS: ALT 13 U/L (4-34); AST 21 U/L (14-36); African American GFR (CKD) 15 (>60 ml/min/1.73 sqM); Alcohol <10 mg/dL; Alkaline Phosphatase 80 U/L (38-126); Anion Gap 10 mmol/L; Blood Urea Nitrogen 51 mg/dL (7-17); Calcium 9.4 mg/dL (8.4-10.2); Carbon Dioxide 18 mmol/L (22-30); Chloride 109 mmol/L (98-107); Glucose 78 mg/dL (74-99); Magnesium 1.9 mg/dL (1.6-2.3); Non-African American GFR(CKD) 13 (>60 ml/min/1.73 sqM); Potassium 4.1 mmol/L (3.5-5.1); Sodium 137 mmol/L (137-145); Total Bilirubin 0.7 mg/dL (0.2-1.3); Total Protein 6.7 g/dL (6.3-8.2)
--- NOTE | 2023-05-21 05:14 | XR ---
EXAM: XR Chest, 2 Views CLINICAL HISTORY: ITS.REASON XR Reason: Weakness TECHNIQUE: Frontal and lateral views of the chest. COMPARISON: 02/27/2019 FINDINGS: Lungs: Unremarkable. No consolidation. Pleural space: Unremarkable. No pneumothorax. Heart: Unremarkable. No cardiomegaly. Mediastinum: Unremarkable. Normal mediastinal contour. Bones/joints: Unremarkable. No acute fracture. IMPRESSION: Normal chest x-rays.
[2023-05-21] MEDS ORDERED: SODIUM CHLORIDE 0.9% 2,000 ML IV STA (06:26)
[2023-05-21 06:34] LABS: Amorphous Sediment,Urine Occasional /hpf; Appearance,Urine Cloudy (Clear); Bacteria,Urine Rare /hpf; Bilirubin,Urine Negative (Negative); Blood,Urine Trace (Negative); Calcium Oxalate Crystals,Urine Occasional /hpf; Color,Urine Yellow; Glucose,Urine (UA) Negative (Negative); Hyaline Casts,Urine 704 /lpf (0-2); Ketones,Urine Trace (Negative); Leukocyte Esterase,Urine Negative (Negative); Mucus,Urine Moderate /hpf; Nitrite,Urine Negative (Negative); Protein,Urine 1+ (Negative); RBC,Urine 4 /hpf (0-5); Specific Gravity,Urine 1.022 (1.001-1.035); Squamous Epithelial Cell,Urine 2 /hpf (0-4); WBC,Urine 4 /hpf (0-5)
[2023-05-21 07:04] LABS: Amphetamine Screen,Urine Detected (NotDetected); Barbiturate Screen,Urine Not Detected (NotDetected); Benzodiazepines Screen,Urine Not Detected (NotDetected); Cocaine Screen,Urine Detected (NotDetected); Methadone Screen, Urine Not Detected (NotDetected); Opiate Screen,Urine Not Detected (NotDetected); Oxycodone Screen, Urine Not Detected (NotDetected); Phencyclidine Screen,Urine Not Detected (NotDetected); Tricyclic Antidepressant,Urine Not Detected (NotDetected); Urn Cannabinoid Scrn Not Detected (NotDetected)
[2023-05-21] MEDS ORDERED: NALOXONE 0.4 MG/ML 1 ML VIAL IV PRN (07:34)
--- NOTE | 2023-05-21 07:40 | CT ---
EXAMINATION TYPE: CT abdomen pelvis wo con DATE OF EXAM: 05/21/2023 COMPARISON: None HISTORY: 63-year-old female Renal failure CT DLP: 331.5 mGycm. Automated exposure control for dose reduction was used. TECHNIQUE: Contiguous axial scanning of the abdomen and pelvis without IV contrast. Coronal and sagit tom reconstructions performed. FINDINGS: Heart upper limits of normal in size. Partially visualized pulmonary nodule posterior right base uri uring up to 6 mm. Hazy dependent atelectasis at the lower lungs. No pleural effusion. At least mild u nderlying emphysematous changes noted. Ectatic lower descending thoracic aorta at 2.5 cm. There is small hiatal hernia. Mild circumferential wall thickening distal esophagus also noted. Noncontrast appearance of the liver, gallbladder, right adrenal gland, and pancreas show no gross abn ormal modality by noncontrast CT. Low density nodularity of the left adrenal gland at 1.1 cm statistically representing a benign adrena l adenoma. A twelve-month follow-up CT can reassess. Kidneys show no nephrolithiasis or hydronephrosis. Multiple calcified granulomas in the spleen. There is prominent annular thickening and additional fol d thickening at the antrum of the stomach, axial images 33 through 35 for metastatic visualization ca n exclude any underlying mucosal lesion. No dilated small bowel, free fluid, or free air. No mesenteric or retroperitoneal adenopathy. Normal appendix. Mild stool burden. Sigmoid diverticulosis. No pericolonic inflammatory change. A Jones catheter in place. There is prominent intraluminal bladder air likely relating to the instrum entation. Multiple pelvic phleboliths. Uterus is anteverted but retroflexed. Both ovaries are visuali zed. No abnormal fluid collection in the pelvis or pelvic lymphadenopathy. Bones: Mild to moderate degenerative disc disease. Degenerative grade 1 retrolisthesis L2-L3, L3-L4, L4-L5. Moderate degenerative change left hip and mild at the right hip. IMPRESSION: 1. Small hiatal hernia and mild circumferential wall thickening distal esophagus. Correlate for any symptoms of a distal esophagitis. 2. Annular thickening along with fold thickening at the antrum of the stomach may in relate to parti al distention or gastritis. Correlate with symptoms and consider direct visualization to exclude unde rlying neoplasm. 3. No nephrolithiasis or hydronephrosis. 4. Sigmoid diverticulosis without acute diverticulitis. 5. Jones catheter in place. Prominent intraluminal bladder air likely relates to the instrumentation. 6. Partially visualized 6 mm right lower lobe pulmonary nodule. Recommend outpatient CT follow-up of the chest in 6-8 weeks to reassess and also to survey the remainder of the lungs. Possibly related to prior granulomatous disease.
[2023-05-21] MEDS: SODIUM CHLORIDE 0.9% 1,000 ML IV SCH ×2 (09:15→17:43)
--- NOTE | 2023-05-21 10:57 | P.NPCON ---
History of Present Illness - Reason for Consult acute renal failure - History of Present Illness Patient is a 63-year-old female who presented to the hospital with a history of itching and hives. Patient also complained of dizziness back pain hip pain. She stated that she was not able to eat or drink much for 2 to 3 days prior to admission. She has also noticed decreased urine output. Blood pressure was noted to be 78/57. Labs showed serum creatinine 3.59 with previous creatinine of 0.5 on 11/08/2022. Urine drug screen positive for amphetamines methamphetamines and cocaine. No major home meds noted. Currently maintained on IV fluids. Blood pressure has improved. Review of Systems As per HPI Past Medical History Past Medical History: COPD, GERD/Reflux, Hypertension History of Any Multi-Drug Resistant Organisms: None Reported Past Surgical History: Tubal Ligation Additional Past Surgical History / Comment(s): facial Past Psychological History: No Psychological Hx Reported Smoking Status: Current every day smoker Past Alcohol Use History: Occasional Past Drug Use History: None Reported Medications and Allergies Home Medications Medication Instructions Recorded Confirmed Type No Known Home Medications 05/21/23 05/21/23 History Allergies Allergy/AdvReac Type Severity Reaction Status Date / Time No Known Allergies Allergy Verified 05/21/23 07:54 Physical Exam Vitals: Vital Signs Temp Pulse Resp BP Pulse Ox 05/21/23 07:48 98.1 F 85 20 95/58 95 05/21/23 06:20 98.2 F 86 18 78/54 93 L 05/21/23 04:03 98.7 F 82 18 78/57 97 05/21/23 02:18 98.8 F 82 18 78/57 97 Intake and Output 05/20/23 05/21/23 05/21/23 22:59 06:59 14:59 Other: Weight 52.163 kg Patient is awake, comfortable, no acute distress Examination of the heart S1 and S2 Examination of the lungs bilateral breath sounds are heard Abdomen is soft nontender Examination of lower extremities shows no edema FOLDER SEAMER exam shows patient is moving all 4 extremities. She is restless Results - Lab Results Most recent lab results Calcium 9.4 mg/dL (8.4-10.2) 05/21/23 04:30 Magnesium 1.9 mg/dL (1.6-2.3) 05/21/23 04:30 05/21/23 04:30 05/21/23 04:30 Assessment and Plan Assessment: 1. Acute kidney injury, ATN currently nonoliguric secondary to hypotension. UA shows 1+ protein trace blood no cells and hyaline casts of 704. CT of the abdomen showed no evidence of obstruction. 2. Hypotension associated with hypovolemia. 1 would expect high blood pressure from cocaine use. No home medications listed and patient denies any antihypertensive medications. 3. Nongap metabolic acidosis associated with acute kidney injury 4. History of drug abuse with urine drug screen positive for amphetamines, methamphetamines and cocaine Plan: Continue aggressive IV hydration. Repeat labs in a.m. Repeat UA down the road preferably post discharge. Avoid NSAIDs. Patient received a dose of Toradol in the ER. Thank you for the consultation. We will continue to follow the patient with you during her hospitalization.
[2023-05-21 20:00] VITALS: BP 101/59; PULSE 77; RESP 18; TEMP 99
--- NOTE | 2023-05-25 19:22 | DS ---
DISCHARGE SUMMARY CHIEF COMPLAINT: Syncopal episode, drug overdose, dehydration, and acute kidney injury. HISTORY OF PRESENT ILLNESS AND PHYSICAL EXAMINATION: Details of this lady's history and physical can be found in the initial workup. LABORATORY STUDIES: While in the hospital, she had laboratory studies, details of which can be found in the laboratory section of her chart. COURSE IN THE HOSPITAL: After admission, she was placed on bedrest, started intravenous fluids, and later in the day decided to leave the hospital against medical advice. FINAL DIAGNOSES: 1. Acute kidney injury. 2. Dehydration. 3. Drug addiction. 4. Chronic obstructive pulmonary disease. OPERATIONS: None. CONSULTATION: None, she is improved. MMODL / IJN: [id number] /
--- NOTE | 2023-05-25 22:16 | HP ---
HISTORY AND PHYSICAL CHIEF COMPLAINTS: Near-syncope, dehydration, hypotension, and acute kidney failure. HISTORY OF PRESENT ILLNESS: This is first known admission for this 63-year-old female who has been known to be a heavy drug abuser in the past in addition to being a heavy smoker. She came to the emergency room dehydrated and in acute renal failure. She had been injecting drugs. REVIEW OF SYSTEMS: She denies any focal neurologic deficits, headaches, chest pain, cough, hemoptysis, nausea, vomiting, diarrhea, melena, dysuria, frequency, hematuria, etc. PAST MEDICAL HISTORY, FAMILY HISTORY, AND PERSONAL AND SOCIAL HISTORY: All otherwise unremarkable, noncontributory or unchanged. PHYSICAL EXAMINATION: VITAL SIGNS: Blood pressure is 86/40 with a pulse of 83 and regular, respirations of 36, and she is afebrile. GENERAL: She appears to be pale, dehydrated and slightly lethargic. HEENT: Head, ears, eyes, nose, and mouth are normal. NECK: Supple. CHEST: Clear. CARDIAC: Demonstrates sinus rhythm with no murmur. ABDOMEN: Flat, soft, nontender without masses or visceromegaly. EXTREMITIES: Normal except for needle hernandez on the arms. NEUROLOGICAL: She is intact, but weak. IMPRESSION: 1. Syncope. 2. Dehydration. 3. Acute kidney injury. 4. Chronic obstructive pulmonary disease. 5. Drug abuse and addiction. PLAN: 1. Bed rest. 2. IV fluids. 3. Nephrology consult. GERMAN / MARIIA: [id number] /
== END 2023-05-21 23:29 | disposition left against medical advice (07) | DRG 683 ==
LOC: EC 02:17 → 3SCARD 07:34 → 5NMEDONC 11:46
PROVIDERS: ADMIT Family Medicine; ATTEND Family Medicine
DX: N17.0 Acute kidney failure with tubular necrosis (principal); E87.20 Acidosis, unspecified; J44.9 Chronic obstructive pulmonary disease, unspecified; F14.10 Cocaine abuse, uncomplicated; I95.9 Hypotension, unspecified; I10 Essential (primary) hypertension; Z53.29 Procedure and treatment not carried out because of patient's decision for other reasons; E86.0 Dehydration; K21.9 Gastro-esophageal reflux disease without esophagitis; F17.210 Nicotine dependence, cigarettes, uncomplicated; F15.90 Other stimulant use, unspecified, uncomplicated; E86.1 Hypovolemia; Z28.310 Unvaccinated for COVID-19; Z79.52 Long term (current) use of systemic steroids; Z11.52 Encounter for screening for COVID-19; Z79.899 Other long term (current) drug therapy
CPT/HCPCS: 36415; 51702; 71046; 74176; 80053; 80306; 80320; 81001; 83605; 83735; 84484; 85025; 85610; 85730; 87636; 93005; 96361; 96374; 96375; 99285

== ENCOUNTER 2023-10-24 10:31 | Emergency (ER) | payer MEDICARE, OTHER ==
[2023-10-24 10:36] VITALS: RESP 18
--- NOTE | 2023-10-24 11:04 | ED ---
Back Pain HPI - General Chief Complaint: Back Pain/Injury Stated Complaint: Back pain Time Seen by Provider: 10/24/23 10:48 Source: patient, EMS, RN notes reviewed Limitations: no limitations - History of Present Illness Initial Comments: This is a 63-year-old female presents the emergency department via EMS for chief complaint of lumbar back pain. Patient states that she has chronic back pain but the right-sided lumbar pain has been worsening over the past week. She denies any obvious injury, fall, trauma to her back over the last few weeks. Patient has followed with a pain medicine specialist in the past but states that she has not seen one in over a year. She denies loss of bladder or bowel continence, saddle anesthesias. Denies increase in frequency or urgency, hematuria, dysuria. Denies radiation of pain. Denies dysphagia, heart palpitations, dizziness, lightheadedness, fatigue. Denies fevers. - Related Data Previous Rx's Medication Instructions Recorded Cyclobenzaprine [Flexeril] 10 mg PO TID PRN #15 tab 10/24/23 Ibuprofen [Motrin] 800 mg PO Q6HR #30 tab 10/24/23 Allergies Allergy/AdvReac Type Severity Reaction Status Date / Time No Known Allergies Allergy Verified 10/24/23 10:36 Review of Systems ROS Statement: Those systems with pertinent positive or pertinent negative responses have been documented in the HPI. ROS Other: All systems not noted in ROS Statement are negative. Past Medical History Past Medical History: COPD, GERD/Reflux, Hypertension Additional Past Medical History / Comment(s): seasonal allergies History of Any Multi-Drug Resistant Organisms: None Reported Past Surgical History: Tubal Ligation Additional Past Surgical History / Comment(s): facial Past Anesthesia/Blood Transfusion Reactions: No Reported Reaction Past Psychological History: No Psychological Hx Reported Smoking Status: Current every day smoker Past Alcohol Use History: Occasional Past Drug Use History: Cocaine, Marijuana - Past Family History Sister(s) Family Medical History: Cancer Additional Family Medical History / Comment(s): throat cancer General Exam Limitations: no limitations General appearance: alert, in no apparent distress Head exam: Present: atraumatic, normocephalic, normal inspection Eye exam: Present: normal appearance, PERRL, EOMI. Absent: scleral icterus, conjunctival injection, periorbital swelling ENT exam: Present: normal exam, mucous membranes moist Neck exam: Present: normal inspection. Absent: tenderness, meningismus, lymphadenopathy Respiratory exam: Present: normal lung sounds bilaterally. Absent: respiratory distress, wheezes, rales, rhonchi, stridor Cardiovascular Exam: Present: regular rate, normal rhythm, normal heart sounds. Absent: systolic murmur, diastolic murmur, rubs, gallop, clicks GI/Abdominal exam: Present: soft, normal bowel sounds. Absent: distended, tenderness, guarding, rebound, rigid Extremities exam: Present: normal inspection, full ROM, normal capillary refill. Absent: tenderness, pedal edema, joint swelling, calf tenderness Back exam: Present: normal inspection, full ROM (pain with flexion, extension, side bending), tenderness (right lumbar spine on palpation and with ROM) Neurological exam: Present: alert, oriented X3, CN II-XII intact Course Vital Signs 10/24/23 10/24/23 10:33 12:52 Temperature 98.2 F 98.1 F Pulse Rate 58 L 61 Respiratory 18 18 Rate Blood Pressure 142/80 118/77 O2 Sat by Pulse 97 98 Oximetry Medical Decision Making - Medical Decision Making Was pt. sent in by a medical professional or institution (, PA, PHYSICAL OPTICS TEACHER, urgent care, hospital, or longterm...) When possible be specific @ -No Did you speak to anyone other than the patient for history (EMS, parent, family, police, friend...)? What history was obtained from this source @ -No Did you review nursing and triage notes (agree or disagree)? Why? @ -I reviewed and agree with nursing and triage notes Were old charts reviewed (outside hosp., previous admission, EMS record, old EKG, old radiological studies, urgent care reports/EKG's, longterm records)? Report findings @ -No old charts were reviewed Differential Diagnosis (chest pain, altered mental status, abdominal pain women, abdominal pain men, vaginal bleeding, weakness, fever, dyspnea, syncope, headache, dizziness, GI bleed, back pain, seizure, CVA, palpatations, mental health, musculoskeletal)? @ -Differential Musculoskeletal Muscular strain, contusion, ligament sprain, fracture, arthritis, septic arthritis, bursitis, cellulitis, muscle spasm, nerve compression, DVT, arterial occlusion, herpes zoster, electrolyte abnormality, tumor.... This is not meant to be in all inclusive list EKG interpreted by me (3pts min.). @ -None X-rays interpreted by me (1pt min.). @ -xr lumbar spine reveals no evidence of fracture or dislocation, chronic degenerative changes. CT interpreted by me (1pt min.). @ -None done U/S interpreted by me (1pt. min.). @ -None done What testing was considered but not performed or refused? (CT, X-rays, U/S, labs)? Why? @ -Alysis was considered but deferred. Patient denies symptoms of dysuria, hematuria, increase in frequency or urgency or flank pain or radiation of pain therefore minimal clinical concern for a urinary infection or kidney stone. What meds were considered but not given or refused? Why? @ -None Did you discuss the management of the patient with other professionals (professionals i.e. , PA, PHYSICAL OPTICS TEACHER, lab, RT, psych nurse, social media community manager, car restorer, teacher, evp and chief operating officer, case assembler)? Give summary @ -No Was smoking cessation discussed for >3mins.? @ -No Was critical care preformed (if so, how long)? @ -No Were there social determinants of health that impacted care today? How? (Homelessness, low income, unemployed, alcoholism, drug addiction, transportation, low edu. Level, literacy, decrease access to med. care, residential, rehab)? @ -No Was there de-escalation of care discussed even if they declined (Discuss DNR or withdrawal of care, Hospice)? DNR status @ -No What co-morbidities impacted this encounter? (DM, HTN, Smoking, COPD, CAD, Cancer, CVA, ARF, Chemo, Hep., AIDS, mental health diagnosis, sleep apnea, morbid obesity)? @ -None Was patient admitted / discharged? Hospital course, mention meds given and route, prescriptions, significant lab abnormalities, going to OR and other pertinent info. @ -Discharge. 63-year-old female via EMS for lumbar back pain. Patient states that pain is chronic but has been worsening over the past few weeks. There are no obvious deformities on physical examination. No red flag findings on discussion. Patient will be sent for imaging of the back and provided with pain medication, she is agreeable to this plan. Vitals are stable upon arrival. Evaluation, patient states that her symptoms have markedly improved after medication ministration. Patient will be discharged home with prescription for flexeril and ibuprofen to take at home as needed. Recommend that she follows ip with her primary care provider next week for further evaluation. All questions answered at bedside and strict return progress discussed with the patient and she is verbalized understanding. Case discussed with Dr. Armendariz Undiagnosed new problem with uncertain prognosis? @ -No Drug Therapy requiring intensive monitoring for toxicity (Heparin, Nitro, Insulin, Cardizem)? @ -No Were any procedures done? @ -No Diagnosis/symptom? @ -Lumbar back pain Acute, or Chronic, or Acute on Chronic? @ -Acute on chronic Uncomplicated (without systemic symptoms) or Complicated (systemic symptoms)? @ -uncomplicated Side effects of treatment? @ -No Exacerbation, Progression, or Severe Exacerbation? @ -No Poses a threat to life or bodily function? How? (Chest pain, [place], [place], pneumonia, PE, COPD, DKA, ARF, appy, cholecystitis, CVA, Diverticulitis, Homicidal, Suicidal, threat to staff... and all critical care pts) @ -No Disposition Clinical Impression: Back pain Disposition: HOME SELF-CARE Condition: Good Instructions (If sedation given, give patient instructions): Acute Low Back Pain (ED) Additional Instructions: Return to the emergency department if symptoms worsen or improve. Take medication prescribed as needed. Recommend that you follow-up with your primary care provider next week for further evaluation. Prescriptions: Cyclobenzaprine [Flexeril] 10 mg PO TID PRN #15 tab PRN Reason: Muscle Spasm Ibuprofen [Motrin] 800 mg PO Q6HR #30 tab Is patient prescribed a controlled substance at d/c from ED?: No Referrals: Gio Gay MD [Primary Care Provider] - 1-2 days Time of Disposition: 12:38
[2023-10-24] MEDS: ORPHENADRINE 30 MG/ML 2 ML VIAL IM STA (11:32)
[2023-10-24] MEDS: KETOROLAC 15 MG/ML 1 ML VIAL IM STA (11:33)
[2023-10-24] MEDS: LIDOCAINE 4% PATCH TOPICAL ONE (11:33)
--- NOTE | 2023-10-24 12:19 | XR ---
EXAMINATION TYPE: XR lumbar spine 2 or 3V DATE OF EXAM: 10/24/2023 11:31 AM CLINICAL INDICATION:Female, 63 years old with history of right lumbar back pain with ROM; [facility] COMPARISON: None TECHNIQUE: XR lumbar spine 2 or 3V - Frontal, lateral and coned down L5-S1 lateral views of the lumba r spine. FINDINGS: There are 5 lumbar-type vertebral bodies. Mineralization appears within normal limits. No osseous vanesa tructive process seen. Vertebral body heights are preserved. There is mild to moderate disc space ruy rowing at each level with some anterior more the posterior marginal osteophytes. There is normal alig nment of the lumbar vertebral bodies. Soft tissues are unremarkable. IMPRESSION: 1. No radiographic evidence of acute compression fracture. 2. Mild multilevel disc degeneration.
[2023-10-24 12:55] VITALS: BP 118/77; PULSE 61; TEMP 98.1
== END 2023-10-24 12:52 | disposition home or self-care (01) ==
LOC: EC 10:31
DX: M54.50 Low back pain, unspecified (principal); F17.200 Nicotine dependence, unspecified, uncomplicated
CPT/HCPCS: 72100; 99284; 96372 ×2; J2360; J1885

== ENCOUNTER 2024-04-29 02:31 | Emergency (ER) | payer MEDICARE, OTHER ==
[2024-04-29 02:36] VITALS: TEMP 99
[2024-04-29] MEDS: SODIUM CHLORIDE 0.9% 1,000 ML IV ONE (03:01)
[2024-04-29] MEDS: diphenhydrAMINE 50 MG/ML 1 ML VIAL IVP STA (03:02)
[2024-04-29] MEDS: LORazepam 2 MG/ML INJ IV STA (03:03)
--- NOTE | 2024-04-29 03:10 | ED ---
General Adult HPI - General Chief complaint: Recheck/Abnormal Lab/Rx Stated complaint: ALLERGIC REACTION Time Seen by Provider: 04/29/24 02:36 Source: patient, EMS Mode of arrival: EMS - History of Present Illness Initial comments: 64-year-old female with a past medical history of hypertension, cocaine, marijuana use presenting today for itching. Patient starts that itching started 2 days ago about the same time she started using crack. Used crack again today. She has history of allergies to "osteoporosis medication" but she has not been taking that. Denies any new medications or medication use. Denies New detergents or exposures. She denies difficulty in swallowing, shortness of breath, chest pain, rashes, nausea, vomiting, abdominal pain, swelling, decreased urine output. Does state that she ate "a new kind of sub" about 3 days ago and wonders if this is the cause of her itching. She is unsure what was in it aside from chicken and tomatoes. Denies other drug use aside from Cocaine. - Related Data Allergies Allergy/AdvReac Type Severity Reaction Status Date / Time No Known Allergies Allergy Verified 04/29/24 02:36 Review of Systems ROS Statement: Those systems with pertinent positive or pertinent negative responses have been documented in the HPI. ROS Other: All systems not noted in ROS Statement are negative. Past Medical History Past Medical History: Hypertension Past Surgical History: Tubal Ligation Past Psychological History: No Psychological Hx Reported Smoking Status: Current every day smoker Past Alcohol Use History: Occasional Past Drug Use History: Cocaine, Marijuana General Exam - General Exam Comments Initial Comments: PE: CONSTITUTIONAL: No apparent distress, well appearing, difficulty sitting still SKIN: Warm, dry, no jaundice, hives or petechiae EYES: Pupils are equally round, extraocular movements intact without nystagmus, clear conjunctiva, non-icteric sclera HENT: Normocephalic, atraumatic, moist mucus membranes, oropharynx clear without exudates, no uvular edema or oral pharyngeal edema NECK: , Full range of motion, normal appearance PULMONARY: Clear to auscultation without wheezes, rhonchi, or rales, normal excursion, no accessory muscle use and no stridor CARDIOVASCULAR: Regular rate, rhythm, normal S1 and S2. No appreciated murmurs, rubs or gallops. Strong radial pulses with intact distal perfusion. No lower extremity edema GASTROINTESTINAL: Soft, active bowel sounds throughout, non-tender, non- distended, no palpable masses, no rebound or guarding. No hepatosplenomegaly MUSCULOSKELETAL: Extremities have no gross deformity, no edema, redness, or swelling. No calf swelling NEUROLOGIC:_a/o x 3, GCS 15, normal mentation and speech. Moves all extremities x 4 without motor or sensory deficit PSYCHIATRIC:_normal mood and affect, thought process is clear and linear, rapid speech Course Vital Signs 04/29/24 04/29/24 02:33 05:35 Temperature 99.0 F Pulse Rate 82 66 Respiratory 18 16 Rate Blood Pressure 149/113 93/64 O2 Sat by Pulse 96 100 Oximetry EKG Findings - EKG Comments: EKG Findings:: Sinus rhythm, rate 80 bpm, MI interval 140 ms, QT/QTc 408/443 ms, normal axis, no ST elevations or depressions, no arrhythmia Medical Decision Making - Medical Decision Making Was pt. sent in by a medical professional or institution (, PA, TAKE AWAY WORKER, urgent care, hospital, or [place] [facility]...) When possible be specific @ -[No] Did you speak to anyone other than the patient for history (EMS, parent, family, police, friend...)? What history was obtained from this source @ -[No] Did you review nursing and triage notes (agree or disagree)? Why? @ -[I reviewed and agree with nursing and triage notes] Were old charts reviewed (outside hosp., previous admission, EMS record, old EKG, old radiological studies, urgent care reports/EKG's, [place] [facility] records)? Report findings @ -[No old charts were reviewed] Differential Diagnosis (chest pain, altered mental status, abdominal pain women, abdominal pain men, vaginal bleeding, weakness, fever, dyspnea, syncope, headache, dizziness, GI bleed, back pain, seizure, CVA, palpatations, mental health, musculoskeletal)? @ -[not applicable] EKG interpreted by me (3pts min.). @ -[As above] X-rays interpreted by me (1pt min.). @ -[None done] CT interpreted by me (1pt min.). @ -[None done] U/S interpreted by me (1pt. min.). @ -[None done] What testing was considered but not performed or refused? (CT, X-rays, U/S, labs)? Why? @ -[None] What meds were considered but not given or refused? Why? @ -[None] Did you discuss the management of the patient with other professionals (professionals i.e. , PA, TAKE AWAY WORKER, lab, RT, psych nurse, social media intern, record cutter, teacher, public information officer, protective services case worker)? Give summary @ -[No] Was smoking cessation discussed for >3mins.? @ -[No] Was critical care preformed (if so, how long)? @ -[No] Were there social determinants of health that impacted care today? How? (Homelessness, low income, unemployed, alcoholism, drug addiction, transportation, low edu. Level, literacy, decrease access to med. care, correction, rehab)? @ -[No] Was there de-escalation of care discussed even if they declined (Discuss DNR or withdrawal of care, Hospice)? @ -[No] What co-morbidities impacted this encounter? (DM, HTN, Smoking, COPD, CAD, Cancer, CVA, ARF, Chemo, Hep., AIDS, mental health diagnosis, sleep apnea, morbid obesity)? @ -[None] Was patient admitted / discharged? Hospital course, mention meds given and ro marcin, prescriptions, significant lab abnormalities, going to OR and other pertinent info. @ -[hospital course] patient is a 64-year-old female presenting today for itching for 2 days after using crack cocaine. Patient seen and assessed on arrival. She is having difficulty sitting still and itching herself profusely. She has no signs of hives or skin changes. No additional symptoms. I suspect p atient symptoms are secondary to crack use. Discussed with her plan for Benadryl and Ativan as well as IV fluids. Patient agreeable with plan of care. On reassessment patient is sleeping comfortably. Her itching has improved. Discussed with her plan for discharge she is agreeable plan. I discussed with the patient the importance of avoiding crack cocaine use was not to further exacerbate her symptoms. Undiagnosed new problem with uncertain prognosis? @ -[No] Drug Therapy requiring intensive monitoring for toxicity (Heparin, Nitro, Insulin, Cardizem)? @ -[No] Were any procedures done? @ -[No] Diagnosis/symptom? Cocaine use, pruritus Acute, or Chronic, or Acute on Chronic? @Acute Uncomplicated (without systemic symptoms) or Complicated (systemic symptoms)? @Uncomplicated Side effects of treatment? @ -[No] Exacerbation, Progression, or Severe Exacerbation? @ -[No] Poses a threat to life or bodily function? How? (Chest pain, [place], [place], pneumonia, PE, COPD, DKA, ARF, appy, cholecystitis, CVA, Diverticulitis, Homicidal, Suicidal, threat to staff... and all critical care pts) @ -[No] Disposition Clinical Impression: Itching, Crack cocaine use Disposition: HOME SELF-CARE Condition: Good Instructions (If sedation given, give patient instructions): Cocaine Abuse (ED) Additional Instructions: Every disease is a spectrum and a small chance still exists that a serious condition could develop, for this reason, please monitor yourself closely for new, changing or worsening symptoms, symptoms that persist beyond 48 hours, difficulty in breathing, difficulty swallowing, vomiting, chest pain inability to tolerate/keep down fluids or your medications, inability to follow up with outpatient providers as instructed and should you experience these symptoms or should you have any further concerns for your wellbeing please return to the ED or call 911 immediately. You may use Benadryl, 25 to 50 mg every 8 hours for itching. Please be advised that this may make you drowsy so please do not drive or operate heavy machinery while using Benadryl. Please drink plenty of fluids. Please refrain from cocaine use. PLEASE call your primary care physician as soon as possible to arrange / discuss plan for followup appointment. Appointment in the next 1-3 days is strongly encouraged if possible. PLEASE let us know here before you leave if there is anything further we can do to be of any assistance. Take care and feel Better! Is patient prescribed a controlled substance at d/c from ED?: No Referrals: None,Stated [Primary Care Provider] - 1-2 days
[2024-04-29 05:36] VITALS: BP 93/64; PULSE 66; RESP 16
== END 2024-04-29 06:13 | disposition home or self-care (01) ==
LOC: EC 02:31 → MERGE 02:31 → EC 06:13
DX: L29.9 Pruritus, unspecified (principal); F14.90 Cocaine use, unspecified, uncomplicated; I10 Essential (primary) hypertension; M81.0 Age-related osteoporosis without current pathological fracture; F17.200 Nicotine dependence, unspecified, uncomplicated
CPT/HCPCS: 99283; 96374; 96375; 96361; J2060; J1200